=== PATIENT | male | born 1955 | race Caucasian/White ===

== ENCOUNTER 2017-09-15 14:42 | Emergency (ER) | payer OTHER ==
[2017-09-15 15:50] LABS: BASO % 0.2 % (0.0-1.0); EOS # 0.1 10^3/uL (0.0-0.50); EOS % 1.6 % (0.0-3.0); HEMOGLOBIN 14.6 g/dl (14.0-18.0); IMMATURE GRANULOCYTE % 0.2 % (0-3.0); LYMPH # 2.1 10^3/uL (1.5-4.5); LYMPH % 33.3 % (24.0-44.0); MEAN CORPUSCULAR HEMOGLOBIN 30.5 pg (27.0-33.0); MEAN CORPUSCULAR HGB CONC 34.8 g/dl (32.0-36.5); MEAN CORPUSCULAR VOLUME 87.9 fl (80.0-96.0); MONO # 0.6 10^3/uL (0.0-0.8); MONO % 9.2 % (0.0-5.0); NEUTROPHILS # 3.5 10^3/uL (1.8-7.7); NEUTROPHILS % 55.5 % (36.0-66.0); PLATELET COUNT, AUTOMATED 176 10^3/uL (150-450); RED BLOOD COUNT 4.78 10^6/uL (4.30-6.10); RED CELL DISTRIBUTION WIDTH 12.8 % (11.5-14.5); WHITE BLOOD COUNT 6.3 10^3/uL (4.0-10.0)
[2017-09-15 16:02] LABS: INR 0.94; PROTHROMBIN TIME 12.7 SECONDS (12.4-14.5)
[2017-09-15 16:18] LABS: ALBUMIN 3.8 GM/DL (3.2-5.2); ALBUMIN/GLOBULIN RATIO 1.23 (1.00-1.93); ALKALINE PHOSPHATASE 57 U/L (45-117); ALT/SGPT 28 U/L (12-78); ANION GAP 8 MEQ/L (8-16); AST/SGOT 18 U/L (7-37); BILIRUBIN,TOTAL 0.6 MG/DL (0.2-1.0); BLOOD UREA NITROGEN 18 MG/DL (7-18); CALCIUM LEVEL 8.7 MG/DL (8.8-10.2); CARBON DIOXIDE LEVEL 27 MEQ/L (21-32); CHLORIDE LEVEL 106 MEQ/L (98-107); CREATININE FOR GFR 1.18 MG/DL (0.70-1.30); GLOMERULAR FILTRATION RATE > 60.0 (>49); GLUCOSE, FASTING 128 MG/DL (70-100); POTASSIUM SERUM 3.8 MEQ/L (3.5-5.1); SODIUM LEVEL 141 MEQ/L (136-145); TOTAL PROTEIN 6.9 GM/DL (6.4-8.2)
== END 2017-09-15 17:09 | disposition home or self-care (01) ==
LOC: M ED 14:42
DX: R04.0 Epistaxis (principal); I10 Essential (primary) hypertension; Z79.890 Hormone replacement therapy; Z79.899 Other long term (current) drug therapy; Z98.890 Other specified postprocedural states; Z86.011 Personal history of benign neoplasm of the brain
CPT/HCPCS: 80053

== ENCOUNTER → 2018-05-05 | Outpatient (CLI) | payer OTHER | LOC: M RAD 07:20 | DX: M19.072 Primary osteoarthritis, left ankle and foot (principal); M94.272 Chondromalacia, left ankle and joints of left foot | CPT/HCPCS: 73722 ==

== ENCOUNTER 2022-11-07 06:32 | Day surgery (SDC) | payer MEDICARE, OTHER ==
[~2022-11-07] VITALS: Ht 190.5 cm; Wt 105.0 kg
[~2022-11-07 06:32] MED LIST: COLA100C2; FLOM0.4C39; HYDR25TA6; JANU50TA8 PO; JARD1TAB PO; LISI10TA4; LOSA100T8 PO; METF10004 PO; METF750T; METFORMIN; NS 1,000 ML IV ONE; PRAV40TA; Pravastatin Sodium; ROSU10TA6 PO; SYNT125T PO; VALS160T2 PO; VICO5TAB
[2022-11-07] MEDS ORDERED: propofoL 500 MG/50 ML VIAL As Ordered ONE (07:21)
[2022-11-07] MEDS ORDERED: LIDOCAINE 2% 100MG/5ML SDV (FOR ANES.) As Ordered ONE (07:21)
[2022-11-07 08:34] VITALS: BP 155/92
== END 2022-11-07 08:35 | disposition home or self-care (01) ==
LOC: M OPP 06:32
PROVIDERS: ATTEND Internal Medicine Gastroenterology
DX: Z12.11 Encounter for screening for malignant neoplasm of colon (principal); D12.6 Benign neoplasm of colon, unspecified; K64.4 Residual hemorrhoidal skin tags; K64.8 Other hemorrhoids; K57.30 Diverticulosis of large intestine without perforation or abscess without bleeding; I45.10 Unspecified right bundle-branch block; G47.33 Obstructive sleep apnea (adult) (pediatric); E11.9 Type 2 diabetes mellitus without complications; E03.9 Hypothyroidism, unspecified; Z79.02 Long term (current) use of antithrombotics/antiplatelets; Z79.84 Long term (current) use of oral hypoglycemic drugs; Z79.890 Hormone replacement therapy; Z79.899 Other long term (current) drug therapy; Z86.14 Personal history of Methicillin resistant Staphylococcus aureus infection; Z86.018 Personal history of other benign neoplasm; Z87.891 Personal history of nicotine dependence; Z92.3 Personal history of irradiation; Z80.3 Family history of malignant neoplasm of breast

== ENCOUNTER 2024-04-28 11:37 | Day surgery (SDC) | payer MEDICARE, OTHER ==
[~2024-04-28] VITALS: Ht 190.5 cm; Wt 107.9 kg
[~2024-04-28 11:37] MED LIST changes: -NS 1,000 ML IV ONE; +PHENYLEPHRINE 10% OPHTH SOL 5ML OS PRN; -ROSU10TA6 PO; +ROSU10TA61 PO
[2024-04-28] MEDS: ATROPINE SULFATE 1% OPHTH SOLN 2ML BTL OS SCH (13:06)
[2024-04-28] MEDS: PHENYLEPHRINE 2.5% OPHTH SOL 2ML OS SCH (13:06)
[2024-04-28] MEDS: LIDOCAINE 3.5 % 1ML OPHTH TOPICAL GEL OU ONE (13:06)
[2024-04-28] MEDS: OFLOXACIN 0.3 % (OCUFLOX) OPTH SOL 5ML OS ONE (13:06)
[2024-04-28] MEDS: TROPICAMIDE 1% OPHTH SOLN 15ML OS SCH (13:06)
[2024-04-28] MEDS ORDERED: fentaNYL 100 MCG/2 ML INJECTION As Ordered ONE (13:39)
[2024-04-28] MEDS: LIDOCAINE 1% SDV 5ML VIAL As Ordered ONE (13:44)
[2024-04-28] MEDS: CEFUROXIME 1MG/0.1ML INTRACAMERAL INJ As Ordered ONE (13:45)
[2024-04-28] MEDS: BSS IRRIG/VANCO(10MG)/TOBRA(5MG)/EPINEPH(1:1000-0.5CC)500ML BAG-ORONLY As Ordered ONE (13:45)
[2024-04-28 14:10] VITALS: BP 142/88; TEMP 97.4; O2SAT 96
== END 2024-04-28 14:50 | disposition home or self-care (01) ==
LOC: M SDC 11:37
PROVIDERS: ATTEND Ophthalmology
DX: H25.12 Age-related nuclear cataract, left eye (principal); E11.9 Type 2 diabetes mellitus without complications; G47.30 Sleep apnea, unspecified; Z79.899 Other long term (current) drug therapy
CPT/HCPCS: 66984; 92015; J0697; J3010; V2788

== ENCOUNTER 2024-05-12 07:30 | Day surgery (SDC) | payer MEDICARE, OTHER ==
[~2024-05-12] VITALS: Ht 190.5 cm; Wt 108.7 kg
[~2024-05-12 07:30] MED LIST changes: +MIDAZOLAM INJ 2MG/2ML VIAL As Ordered ONE; +PHENYLEPHRINE 10% OPHTH SOL 5ML OD PRN; -PHENYLEPHRINE 10% OPHTH SOL 5ML OS PRN; +fentaNYL 100 MCG/2 ML INJECTION As Ordered ONE
[2024-05-12] MEDS: LIDOCAINE 3.5 % 1ML OPHTH TOPICAL GEL OU ONE (08:24)
[2024-05-12] MEDS: OFLOXACIN 0.3 % (OCUFLOX) OPTH SOL 5ML OD ONE (08:24)
[2024-05-12] MEDS: TROPICAMIDE 1% OPHTH SOLN 15ML OD SCH (08:25)
[2024-05-12] MEDS: PHENYLEPHRINE 2.5% OPHTH SOL 2ML OD SCH (08:25)
[2024-05-12] MEDS: ATROPINE SULFATE 1% OPHTH SOLN 2ML BTL OD SCH (08:25)
[2024-05-12] MEDS: BSS IRRIG/VANCO(10MG)/TOBRA(5MG)/EPINEPH(1:1000-0.5CC)500ML BAG-ORONLY As Ordered ONE (09:27)
[2024-05-12] MEDS: LIDOCAINE 1% SDV 5ML VIAL As Ordered ONE (09:27)
[2024-05-12] MEDS: CEFUROXIME 1MG/0.1ML INTRACAMERAL INJ As Ordered ONE (09:27)
[2024-05-12 09:38] VITALS: BP 127/80; TEMP 98.6; O2SAT 98
== END 2024-05-12 09:55 | disposition home or self-care (01) ==
LOC: M SDC 07:30
PROVIDERS: ATTEND Ophthalmology
DX: H25.11 Age-related nuclear cataract, right eye (principal); E11.9 Type 2 diabetes mellitus without complications; G47.33 Obstructive sleep apnea (adult) (pediatric); Z79.899 Other long term (current) drug therapy
CPT/HCPCS: 66984; 92015; J0697; J2250; J3010; V2788

== ENCOUNTER → 2024-07-09 | Outpatient (REF) | payer MEDICARE, OTHER ==
[~2024-07-09] MED LIST changes: -MIDAZOLAM INJ 2MG/2ML VIAL As Ordered ONE; -PHENYLEPHRINE 10% OPHTH SOL 5ML OD PRN; -fentaNYL 100 MCG/2 ML INJECTION As Ordered ONE
[2024-07-09 18:40] LABS: RSV AMPLIFICATION NEGATIVE (NEGATIVE)
== END ==
LOC: M LAB REF 16:12
PROVIDERS: ATTEND Physician Assistant
DX: J06.9 Acute upper respiratory infection, unspecified (principal)

== ENCOUNTER → 2024-07-23 | Outpatient (CLI) | payer MEDICARE, OTHER ==
[~2024-07-23] MED LIST changes: +PROHANCE 279.3MG/ML 15ML VIAL As Ordered ONE; +PROHANCE 279.3MG/ML 5ML VIAL As Ordered ONE
== END ==
LOC: M RAD 10:30
PROVIDERS: ATTEND Internal Medicine
DX: D32.0 Benign neoplasm of cerebral meninges (principal)
CPT/HCPCS: 70553; A9576

== ENCOUNTER → 2024-08-31 | Outpatient (CLI) | payer MEDICARE, OTHER ==
[~2024-08-31] MED LIST changes: -PROHANCE 279.3MG/ML 15ML VIAL As Ordered ONE; -PROHANCE 279.3MG/ML 5ML VIAL As Ordered ONE
== END ==
LOC: M PLAIMG 10:17
PROVIDERS: ATTEND Internal Medicine
DX: I63.81 Other cerebral infarction due to occlusion or stenosis of small artery (principal)

== ENCOUNTER 2024-10-28 16:54 | Emergency (ER) | payer MEDICARE, OTHER ==
[~2024-10-28] VITALS: Ht 190.5 cm; Wt 109.1 kg
[2024-10-28] MEDS ORDERED: ECOT81TA5 PO (17:05)
[2024-10-28 23:00] VITALS: TEMP 97.9
[2024-10-29 01:00] VITALS: BP 155/99
[2024-10-29] MEDS ORDERED: ACET1TAB37 PO (01:08)
[2024-10-29] MEDS ORDERED: DICL20GE TP (01:08)
[2024-10-29 01:15] VITALS: O2SAT 94
== END 2024-10-29 01:21 | disposition home or self-care (01) ==
LOC: M ED 16:54
DX: S76.111A Strain of right quadriceps muscle, fascia and tendon, initial encounter (principal); S76.011A Strain of muscle, fascia and tendon of right hip, initial encounter; M85.68 Other cyst of bone, other site; M17.11 Unilateral primary osteoarthritis, right knee; Y92.019 Unspecified place in single-family (private) house as the place of occurrence of the external cause; Y93.9 Activity, unspecified; Y99.9 Unspecified external cause status; E11.9 Type 2 diabetes mellitus without complications; E78.5 Hyperlipidemia, unspecified; I10 Essential (primary) hypertension; Z79.1 Long term (current) use of non-steroidal anti-inflammatories (NSAID); Z79.84 Long term (current) use of oral hypoglycemic drugs; Z79.899 Other long term (current) drug therapy

== ENCOUNTER → 2025-04-26 | Outpatient (CLI) | payer MEDICARE, OTHER ==
[~2025-04-26] MED LIST changes: +ACET-1592 PO; +DICL20GE TP; +ECOT81TA5 PO
== END ==
LOC: M WUC 09:01
PROVIDERS: ATTEND Physician Assistant
DX: J06.9 Acute upper respiratory infection, unspecified (principal); R06.02 Shortness of breath

== ENCOUNTER → 2025-05-30 | Outpatient (REF) | payer MEDICARE, OTHER ==
[~2025-05-30] MED LIST changes: -ROSU10TA61 PO; +ROSU10TA90 PO
== END ==
LOC: M LAB REF 17:52
PROVIDERS: ATTEND Internal Medicine
DX: R53.83 Other fatigue (principal)